=== PATIENT | male | born 1995 | race Two or more races ===

== ENCOUNTER 2016-12-18 18:37 | Emergency (ER) | payer OTHER ==
[~2016-12-18] VITALS: Ht 175.3 cm; Wt 69.5 kg
[2016-12-18 18:40] VITALS: Ht 175.3 cm; Wt 69.5 kg
[2016-12-18] MEDS ORDERED: ONDANSETRON (ODT) 4 MG TAB ODT STA (19:07)
[2016-12-18] MEDS ORDERED: IBUPROFEN 600 MG TAB PO ONE (19:30)
[2016-12-18] MEDS ORDERED: HYDROCODONE/APAP (5/325) TAB PO ONE (19:30)
--- NOTE | 2016-12-18 19:54 | RADRPT ---
PROCEDURE: XR hand. CLINICAL INDICATION: Hand pain. TECHNIQUE: AP, lateral and oblique views of the right hand was obtained. COMPARISON: There are no similar studies submitted for comparison. FINDINGS: There is normal bone mineralization.There is an acute transverse mildly displaced fracture at the ba se of the first metacarpal. This does not extend into the joint space. There is associated soft tiss ue swelling. No osseous erosions are identified.The joint spaces are within normal limits. IMPRESSION: Acute transverse mildly displaced fracture at the base of the first metacarpal with associated soft tissue swelling. Further findings as detailed above. RPTAT: PP .Tamir Roth MD, Date Time Electronically viewed and signed by .Tamir Roth MD, on 12/18/2016 19:54 .F/
--- NOTE | 2016-12-18 19:54 | RADRPT ---
PROCEDURE: XR wrist. CLINICAL INDICATION: Wrist pain. TECHNIQUE: AP, lateral and oblique views of the right wrist was obtained. COMPARISON: There are no similar studies submitted for comparison. FINDINGS: There is normal bone mineralization. There is an acute transverse mildly displaced fracture at the base of the first metacarpal. This abdi s not extend into the joint space. There is associated soft tissue swelling. No osseous erosions are identified. The joint spaces are within normal limits. IMPRESSION: Acute transverse mildly displaced fracture at the base of the first metacarpal with associated soft tissue swelling. Further findings as detailed above. RPTAT: PP .Tamir Roth MD, MD Date Time Electronically viewed and signed by .Tamir Roth MD, on 12/18/2016 19:53 .F/
[2016-12-18] MEDS ORDERED: NAPR-260 PO (20:44)
[2016-12-18] MEDS ORDERED: HYDR-906 PO (20:44)
[2016-12-18 21:07] VITALS: BP 121/68; PULSE 77; RESP 18
--- NOTE | 2016-12-18 21:27 | ERD ---
ER Documentation Chief Complaint Date/Time DATE: 12/18/16 TIME: 21:22 Chief Complaint right hand pain/swelling due to a fall from skateboarding HPI Patient is a 21-year-old male presenting to the emergency department with complaints of right thumb pain after fall yesterday while skateboarding. He states he is not sure exactly how he fell into his hand but it was not effusion injury. Pain is constant, 8 out of 10 in severity, throbbing nature. He took Tylenol with mild relief of symptoms. He denies wrist pain, other injuries, head injury, loss of consciousness, or other symptoms currently. ROS All systems reviewed and are negative except as per history of present illness. Medications Home Meds Active Scripts Naproxen* (Naprosyn*) 500 Mg Tablet, 500 MG PO BID Y for PAIN AND/OR INFLAMMATION, #30 TAB Prov:JAMES RAMSEY PA-C 12/18/16 Hydrocodone/Acetaminophen ([place] 5-325 Tablet) 1 Each Tablet, 1 TAB PO Q6H Y for PAIN, #7 TAB Prov:JAMES RAMSEY PA-C 12/18/16 Allergies Allergies: Coded Allergies: No Known Allergy (Unverified , 04/11/14) PMhx/Soc Medical and Surgical Hx: pt denies Medical Hx, pt denies Surgical Hx History of Surgery: No Anesthesia Reaction: No Hx Neurological Disorder: No Hx Respiratory Disorders: No Hx Cardiac Disorders: No Hx Psychiatric Problems: No Hx Miscellaneous Medical Probl: No Hx Alcohol Use: No Hx Substance Use: Yes (smokes weed) Hx Tobacco Use: Yes ( 3 sticks/day) Smoking Status: Current every day smoker Physical Exam Vitals Vital Signs Date Time Temp Pulse Resp B/P Pulse Ox O2 Delivery O2 Flow Rate FiO2 12/18/16 21:07 77 18 121/68 97 Room Air 12/18/16 18:40 98.3 100 18 131/87 99 Physical Exam Const: Toxic, well-appearing male in no acute distress currently. Head: Atraumatic Eyes: Normal Conjunctiva ENT: Normal External Ears, Nose and Mouth. Skin: No petechiae or rashes Back: No midline or flank tenderness Ext: Tenderness to palpation of the thenar eminence of the right hand with associated edema. No open fracture or deformity noted. 2+ radial pulses in the right upper extremity. Full range of motion of the right wrist. Neur: Awake and alert Psych: Normal Mood and Affect Results 24 hrs Current Medications Medications (Trade) Dose Ordered Sig/Kvng Route PRN Reason Start Time Stop Time Status Last Admin Dose Admin Acetaminophen/ Hydrocodone Bitart ([place] (5/325)) 1 tab ONCE ONCE PO 12/18/16 19:30 12/18/16 19:31 DC 12/18/16 19:32 Ibuprofen (Motrin) 600 mg ONCE ONCE PO 12/18/16 19:30 12/18/16 19:31 DC 12/18/16 19:32 Ondansetron HCl (Zofran Odt) 4 mg ONCE STAT ODT 12/18/16 19:07 12/18/16 19:10 DC 12/18/16 19:32 Procedures/MDM This patient is a 21-year-old male presenting to the emergency department with complaints of right thumb pain after skateboarding accident yesterday. The examination shows tenderness palpation of the thenar eminence of the right hand , however there is no open fracture or deformity noted. After x-ray imaging was obtained, the diagnosis was fracture of the base of the first metacarpal of the right thumb. The patient was immobilized in a thumb spica splint of the right upper extremity and was neurovascularly intact post application. The patient was treated in the department with p.o. [place], p.o. Zofran, and p.o. ibuprofen. The patient was stable for outpatient management and very close follow-up with orthopedics within the next 24 hours. He was given information to do so. He was given copies of his x-rays. He is to return immediately for any new or worsening symptoms. Close follow-up with the primary care physician as well was advised. Low suspicion for life-threatening pathology at time of discharge. PROCEDURE: XR hand. CLINICAL INDICATION: Hand pain. TECHNIQUE: AP, lateral and oblique views of the right hand was obtained. COMPARISON: There are no similar studies submitted for comparison. FINDINGS: There is normal bone mineralization.There is an acute transverse mildly displaced fracture at the base of the first metacarpal. This does not extend into the joint space. There is associated soft tissue swelling. No osseous erosions are identified.The joint spaces are within normal limits. IMPRESSION: Acute transverse mildly displaced fracture at the base of the first metacarpal with associated soft tissue swelling. Further findings as detailed above. RPTAT: PP .Tamir Roth MD, Date Time Electronically viewed and signed by .Tamir Roth MD, MD on 12/18/2016 19:54 PROCEDURE: XR wrist. CLINICAL INDICATION: Wrist pain. TECHNIQUE: AP, lateral and oblique views of the right wrist was obtained. COMPARISON: There are no similar studies submitted for comparison. FINDINGS: There is normal bone mineralization. There is an acute transverse mildly displaced fracture at the base of the first metacarpal. This does not extend into the joint space. There is associated soft tissue swelling. No osseous erosions are identified. The joint spaces are within normal limits. IMPRESSION: Acute transverse mildly displaced fracture at the base of the first metacarpal with associated soft tissue swelling. Further findings as detailed above. RPTAT: PP .Tamir Roth MD, MD Date Time Electronically viewed and signed by .Tamir Roth MD, on 12/18/2016 19:53 Departure Diagnosis: Primary Impression: Fracture of thumb, right, closed Encounter type: initial encounter Phalanx: proximal Fracture alignment: displaced Qualified Code: S62.511A - Closed displaced fracture of proximal phalanx of right thumb, initial encounter Condition: Fair Patient Instructions: Fracture, Finger (Closed) Referrals: [facility] Urgent Care 7 a.m.- 11 p.m. Every Day of the Week NO APPOINTMENT OR AUTHORIZATION NEEDED [facility] Hours: Mon-Fri 9:00 AM - 5:00 PM Additional Instructions: Follow-up with the complaint specialist within the next 1-2 days. Follow up with your PCP within the next 1-3 days for a repeat evaluation. If you require a referral to a specialist, your Primary Care Provider may be able to provide this for you. In most patient cases, a referral is not required. If you have further questions regarding this matter, please ask your Primary Care Provider. Return the the emergency department immediately if symptoms worsen or change. If you have any questions regarding medications, ask your pharmacist or us before you leave. If any adverse reactions, occur while taking your medications, discontinue the treatment and return to the emergency department immediately. If any new or worsening symptoms, uncontrolled fevers, or other unexplained symptoms occur, return to the emergency department immediately. Take your medications as directed, and complete the entire course of treatment. JAMES RAMSEY PA-C Dec 18, 2016 21:27
== END 2016-12-18 21:09 | disposition home or self-care (01) ==
LOC: FTE 18:37
DX: S62.511A Displaced fracture of proximal phalanx of right thumb, initial encounter for closed fracture (principal); F17.210 Nicotine dependence, cigarettes, uncomplicated; V00.131A Fall from skateboard, initial encounter; Y92.9 Unspecified place or not applicable
CPT/HCPCS: 29125; 73110; 73130; Z7502; Z7610

== ENCOUNTER 2016-12-28 12:40 | Emergency (ER) | payer OTHER ==
[~2016-12-28] VITALS: Ht 165.1 cm; Wt 72.5 kg
[~2016-12-28 12:40] MED LIST: HYDR-906 PO; NAPR-260 PO
[2016-12-28 12:52] VITALS: Ht 165.1 cm; Wt 72.5 kg
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
== END 2016-12-28 15:05 | disposition left against medical advice (07) ==
LOC: FTE 12:40 → E/R 15:05
DX: S62.501D Fracture of unspecified phalanx of right thumb, subsequent encounter for fracture with routine healing (principal); V78 Bus occupant injured in noncollision transport accident; Z76.5 Malingerer [conscious simulation]; Z87.891 Personal history of nicotine dependence
CPT/HCPCS: 99282